=== PATIENT | male | born 1970 | race Two or more races ===

== ENCOUNTER 2024-05-18 14:16 | Emergency (ER) | payer OTHER ==
[~2024-05-18] VITALS: Ht 182.9 cm; Wt 81.6 kg
[2024-05-18] MEDS ORDERED: ONDANSETRON HCL 2 MG/ML VIAL ONE (16:19)
[2024-05-18] MEDS ORDERED: KETOROLAC TROMETHAMINE 60 MG VIAL IM ONE ×2 (16:19→16:30)
[2024-05-18] MEDS ORDERED: CEFTRIAXONE SODIUM 1,000 MG VIAL ONE (16:19)
[2024-05-18] MEDS ORDERED: FAMOTIDINE/PF 20 MG/2 ML VIAL ONE (16:20)
[2024-05-18] MEDS ORDERED: ONDANSETRON HCL 2 MG/ML VIAL IV ONE (16:30)
[2024-05-18] MEDS ORDERED: CEFTRIAXONE SODIUM 1,000 MG VIAL IV ONE (16:30)
[2024-05-18] MEDS ORDERED: FAMOtidine 10 MG/ML (4ML VIAL) IV ONE (16:30)
[2024-05-18 17:06] LABS: HEMATOCRIT 50.5 % (39.0-48.0); HEMOGLOBIN 17.7 g/dL (13-16.00); MEAN CELL VOLUME 87.9 fL (80.0-100.00); MEAN CORPUSCULAR HEMOGLOBIN 30.9 pg (27.00-32.0); MEAN CORPUSCULAR HGB CONC 35.1 g/dl (32.0-36.0); PLATELET COUNT 287 K/uL (150-450); RED BLOOD COUNT 5.74 M/uL (4.00-6.00)
[2024-05-18 17:14] LABS: INR 1.01; PARTIAL THROMBOPLASTIN TIME 28.9 SECONDS (22.0-34.0)
[2024-05-18 17:19] LABS: ALBUMIN 4.4 gm/dL (3.4-5.0); BILIRUBIN TOTAL 1.19 mg/dL (0.3-1.2); CALCIUM 9.6 mg/dL (8.5-10.1); CREATININE SERUM 0.91 mg/dL (0.70-1.30); GFR 87.83; POTASSIUM 4.27 mEq/L (3.5-5.1); TOTAL PROTEIN 7.4 gm/dL (6.4-8.2)
[2024-05-18] MEDS ORDERED: METRONIDAZOLE500 MG PO (18:49)
[2024-05-18] MEDS ORDERED: CIPRO500 MG PO (18:49)
[2024-05-18] MEDS ORDERED: DICY20TA PO (18:49)
[2024-05-18] MEDS ORDERED: PROBIOTIC1 EAC2 PO (18:49)
[2024-05-18] MEDS ORDERED: ZOFRAN8 MG PO (18:49)
[2024-05-18] MEDS ORDERED: PEPCID AC20 MG PO (18:49)
== END 2024-05-18 19:24 | disposition home or self-care (01) ==
LOC: ER 14:16
PROVIDERS: General Practice
DX: R10.31 Right lower quadrant pain (principal); R10.9 Unspecified abdominal pain
CPT/HCPCS: 36415; 74177; Q9965